=== PATIENT | male | born 1950 | race Two or more races ===

== ENCOUNTER 2025-07-25 01:39 | Emergency (ER) | payer MEDICARE, SELFPAY ==
[2025-07-25 01:41] VITALS: BMI 23.6
[2025-07-25 02:13] VITALS: BP 152/93; PULSE 81; RESP 19; TEMP 36.7; O2SAT 96
--- NOTE | 2025-07-25 02:28 | XR_ITS ---
Examination: AP chest single view Technique: AP portable upright chest single view Date and time: July 25, 2025 0236 hrs. Indications: Coughing beginning 2 days ago Findings: Normal heart size. Lungs are clear. The osseous structures are intact Impression: No active disease
--- NOTE | 2025-07-25 02:29 | PD.EDURI ---
Upper Respiratory Inf. RME/HPI General Chief Complaint: Flu Like Symptoms Stated Complaint: COUGH CONGESTION Time Seen by Provider: 07/25/25 02:28 Arrival date/time: 07/25/25 01:39 74M with history of asthma presents to ED with 2 days of cough and sore throat. Patient had Tele-doc appt, who prescribed Z-sarah, Tessalon Perles, and Zyrtec. Limitations: no limitations Related Data Previous Rx's ?Medication ?Instructions ?Recorded prednisone 20 mg tablet 20 mg PO BID 3 days #6 tabs 07/25/25 Allergies Allergy/AdvReac Type Severity Reaction Status Date / Time Penicillins Allergy Verified 07/25/25 01:45 Review of Systems Review of Systems Systems Reviewed: All systems reviewed, normal except as documented ENT Ears, Nose, Mouth, and Throat: Reports as per HPI and Reports sore throat Respiratory Respiratory: Reports as per HPI and Reports cough Past Medical History Social History SMOKING STATUS: Never smoker ED Exam General Limitations: Present no limitations General appearance: Present alert and in no apparent distress Head Head exam: Present atraumatic ENT ENT exam: Present normal exam, normal oropharynx and mucous membranes moist Neck Neck exam: Present normal inspection, full ROM and trachea midline Chest Chest inspection: Present normal inspection and symmetric chest wall rise Respiratory Respiratory exam: Present wheezes Neurological Exam Neurological exam: Present alert and oriented X3 Psychiatric Psychiatric exam: Present normal affect and normal mood Skin Skin exam: Present warm, dry, intact and normal color Course Quality Measures none Orders Category Date Time Status Bedside COVID-19 Antigen Test NOW Care 07/25/25 01:47 Active Bedside Influenza A&B Antigen Test NOW Care 07/25/25 01:47 Completed XR chest 1V portable Stat Exams 07/25/25 02:28 Taken Albuterol/Ipratr Rt Bessie [Duoneb Rt Bessie] Med 07/25/25 02:28 Discontinued 3 ml INH X1 ONE Dexamethasone Inj [Decadron Inj] Med 07/25/25 02:28 Discontinued 10 mg PO X1 ONE Vital Signs Vital signs: Vital Signs Temperature 98.1 F 07/25/25 02:13 Pulse Rate 81 07/25/25 02:13 Respiratory Rate 19 07/25/25 02:13 Blood Pressure 152/93 H 07/25/25 02:13 Pulse Oximetry (%) 96 07/25/25 02:13 Oxygen Delivery Method Room Air 07/25/25 02:13 O2 at 96% on RA and WNLs Upper Respiratory Infection MDM Narrative MDM Narrative:: 74M with history of asthma presents to ED with 2 days of cough and sore throat. Patient had Tele-doc appt, who prescribed Z-sarah, Tessalon Perles, and Zyrtec. Physical exam reveals normal oropharynx but wheezing in lungs. Patient is afebrile, calm, and alert. Swabs neg. Telerad CXR read unremarkable. Meds relieved wheezing. Sheet Metal Operator given. Patient data External records reviewed:: None Clinical information provided by:: patient Social determinants that could affect healthcare access:: none Patient has the following chronic illnesses:: asthma How is presenting disease/condition affected by chronic disease/condition?: exacerbated by Evaluation data The following diagnostics were reviewed and interpreted by me:: lab results and radiology exam(s) Lab and/or radiology exams considered but not ordered:: ordered Interpretation Summary: above Medications / Prescriptions Medications or Prescriptions considered but not ordered:: ordered Medication administrations:: Medication Administration History Discontinued Medications Albuterol/Ipratropium (Albuterol/Ipratropium (Duoneb) Rt Bessie 3 Ml Nebu) 3 ml INH X1 ONE Stop: 07/25/25 02:29 Last Admin: 07/25/25 02:41 Dose: 3 ml Documented By: EMR Dexamethasone Sodium Phosphate (Dexamethasone Sod Phos Inj 10 Mg/Ml Vial) 10 mg PO X1 ONE Stop: 07/25/25 02:29 Last Admin: 07/25/25 02:36 Dose: 10 mg Documented By: WO Comments: PO above Consultations Consultation(s) initiated? (list below): No Diagnosis Upper Respiratory Differential Diagnosis: upper respiratory infection, croup, otitis media, sinusitis, viral infection, bronchitis, influenza, pharyngitis and other (asthma exacerbation) Most likely diagnosis given after review of the tests above:: URI and asthma exacerbation Admission Indicated Admission indicated?: not indicated Admission Request Was there a request for admission?: No Disposition Plan Disposition Plan: Discharge Discharge Attestation Discharge Attestation: The patient and all family members were given an opportunity to ask questions and understood the discharge instructions. Discharge instructions specifically effects, indications for sooner follow up or return to the emergency department, and the expected course of current diagnosis. Patient condition: Stable Discharge Plan Plan Patient Disposition: HOME (Self Care) Discharge Disposition comment: Stable Prescriptions/Referrals Prescriptions/Med Rec: New prednisone 20 mg tablet 20 mg PO BID 3 Days Qty: 6 0RF Referrals: No Primary/Family,Physician [Primary Care Provider] - In 1 week Problem List Clinical Impression: Upper respiratory infection, Asthma exacerbation Patient/Caregiver Discharge Instructions Education Materials: ED URI, Viral W/ Wheezing (Adult) Additional Instructions: Please follow-up with PCP within 24-48 hours and return immediately if symptoms worsen. Can finish the Z-sarah. Do not need to take other meds if they are not helping you. Do take steroids. Print Language: Syriac Stand Alone Forms: Patient Portal Info Letter PA/MERCHANDISE ADJUSTMENT CLERK Supervising Physician PA/CEM Supervising Physician: Dr. Ren
[2025-07-25] MEDS: DEXAMETHASONE SOD PHOS INJ 10 MG/ML VIAL PO (02:36)
[2025-07-25 02:41] VITALS: PULSE 86; RESP 20; O2SAT 98
[2025-07-25] MEDS: ALBUTEROL/IPRATROPIUM (Duoneb) RT SOL 3 ML NEBU INH (02:41)
--- NOTE | 2025-07-25 03:14 | PRELIM_ITS ---
Radiograph of the chest (single view). July 25, 2025 0233 hours Clinical history: Cough Comparison: No prior study is available for comparison. Findings: The heart, mediastinum and pulmonary pascual are unremarkable. The lungs are clear. There is no pleural effusion. The bony thorax is unremarkable. Impression: No focal consolidation or pleural effusion. Report Electronically Signed By: Arthur Shelley 07/25/2025 3:13:47 AM [EST]
[2025-07-25 03:34] VITALS: BP 152/84; PULSE 82; RESP 20; TEMP 36.8; O2SAT 96
== END 2025-07-25 03:34 | disposition home or self-care (01) ==
PROVIDERS: Emergency Provider Emergency Medicine
DX: J45.901 Unspecified asthma with (acute) exacerbation (principal); J06.9 Acute upper respiratory infection, unspecified
CPT/HCPCS: 71045; 87400; 87811; 94640; 99283; A9270; J1100

== ENCOUNTER 2025-07-26 18:38 | Emergency (ER) | payer MEDICARE, SELFPAY ==
[2025-07-26 18:38] VITALS: BMI 23.6
--- NOTE | 2025-07-26 18:53 | XR_ITS ---
Examination: PA chest single view Technique: Upright PA chest single view July 26, 2025, 1858 hrs. Indications: Shortness of breath today Findings: Normal heart size. Lungs are clear. Osseous structures are intact Impression: No active disease
--- NOTE | 2025-07-26 19:01 | PD.EDURI ---
Upper Respiratory Inf. RME/HPI General Chief Complaint: Flu Like Symptoms Stated Complaint: COUGH SINCE LAST NIGHT, SEEN FEW DAYS AGO Time Seen by Provider: 07/26/25 18:45 Arrival date/time: 07/26/25 18:38 RME / HPI RME / HPI Narrative: Mr. Weeks is a 74-year-old male with past medical history of asthma who presented to [facility] [place] emergency department with a chief complaint of shortness of breath. Patient was reportedly seen yesterday in the ER for similar complaints was given breathing treatment, currently is on prednisone and has upper respiratory infection symptoms, patient is requesting a breathing treatment. He does endorse increased secretions shortness of breath however SpO2 stable on room air. Patient denies any chest pain headache palpitations dizziness and syncopal episode Related Data Previous Rx's ?Medication ?Instructions ?Recorded prednisone 20 mg tablet 20 mg PO BID 3 days #6 tabs 07/25/25 albuterol sulfate 2.5 mg/3 mL 2.5 mg (3 mL) inhalation Q6H PRN 07/26/25 (0.083 %) solution for nebulization shortness of breath or wheezing #75 mL albuterol sulfate 90 mcg/actuation 2 puff inhalation Q6H PRN 07/26/25 aerosol inhaler shortness of breath or wheezing #8.5 grams budesonide-formoterol HFA 160 1 puff inhalation BID Asthma #10.2 07/26/25 mcg-4.5 mcg/actuation aerosol grams inhaler Allergies Allergy/AdvReac Type Severity Reaction Status Date / Time Penicillins Allergy Severe Hives Verified 07/26/25 18:40 Review of Systems Review of Systems Systems Reviewed: All systems reviewed, normal except as documented Past Medical History Past Medical History RESPIRATORY: Positive Asthma Social History SMOKING STATUS: Never smoker ED Exam Narrative Physical exam: Physical Exam General: Awake and in no acute distress. Conversational and non-toxic appearing. HEENT: Normocephalic, atraumatic, mucous membranes moist. Heart: Regular rate and rhythm, no murmurs. Lungs: Clear to auscultation with no wheezing or crackles. Thick sputum. Abdomen: Soft, nondistended, nontender, positive bowel sounds. ?No guarding or rebound tenderness. Neurologic: Alert and oriented x3, no gross neurological deficit, and patient able to move all 4 extremities. Extremities: No edema. Skin: No rash or ecchymoses. Course Quality Measures none Orders Category Date Time Status Bedside COVID-19 Antigen Test NOW Care 07/26/25 18:49 Completed Bedside Influenza A&B Antigen Test NOW Care 07/26/25 18:51 Completed CXRP [XR chest 1V portable] Stat Exams 07/26/25 18:53 Completed CBC Stat Lab 07/26/25 19:13 Completed CMP [Comprehensive Metabolic Panel] Stat Lab 07/26/25 19:13 Completed Lactate (Lactic Acid) Stat Lab 07/26/25 19:13 Completed Magnesium Stat Lab 07/26/25 19:13 Completed Procalcitonin Stat Lab 07/26/25 19:13 Completed Albuterol/Ipratr Rt Bessie [Duoneb Rt Bessie] Med 07/26/25 18:49 Discontinued 3 ml INH X1 ONE Vital Signs Vital signs: Vital Signs Temperature 97.8 F 07/26/25 19:09 Pulse Rate 68 07/26/25 19:09 Respiratory Rate 18 07/26/25 19:09 Blood Pressure 160/86 H 07/26/25 19:09 Pulse Oximetry (%) 96 07/26/25 19:09 Oxygen Delivery Method Room Air 07/26/25 19:09 Upper Respiratory Infection MDM Narrative MDM Narrative:: # URI # Asthma Mr Weeks is a 74 year old male PMH of Asthma presented to ED with shortness of breath. Patient was seen in the ER yesterday for similar complaint, was given breathing treatment with DuoNeb and improved Patient is requesting another breathing treatment and medication refill Workup: Bedside COVID and flu negative Chest x-ray negative for acute pneumonia CBC: WBC 13.5, RBC 4.4, hemoglobin 14.1 hematocrit 40.7 platelet 231 Chemistry chloride 108, BUN/creatinine GFR within normal limits liver function within normal limits otherwise glucose 150 albumin/protein within normal limits lactate and Pro-Erick within normal limits Patient was given DuoNeb x 1 Patient was prescribed albuterol inhaler, albuterol solution and budesonide/formoterol, patient to continue prednisone Supportive management for upper respiratory viral infection Case discussed with Attending Physician Dr. Lorin Ventura MD Internal Medicine PGY-2 Disclaimer: This note was dictated by speech recognition. Minor errors in fuse cutter may be present due to voice recognition software. Patient data External records reviewed:: [facility] previous records Clinical information provided by:: patient Social determinants that could affect healthcare access:: none Patient has the following chronic illnesses:: Asthma How is presenting disease/condition affected by chronic disease/condition?: exacerbated by Evaluation data The following diagnostics were reviewed and interpreted by me:: lab results and radiology exam(s) Lab and/or radiology exams considered but not ordered:: None Interpretation Summary: Bedside COVID and flu negative Chest x-ray negative for acute pneumonia CBC: WBC 13.5, RBC 4.4, hemoglobin 14.1 hematocrit 40.7 platelet 231 Chemistry chloride 108, BUN/creatinine GFR within normal limits liver function within normal limits otherwise glucose 150 albumin/protein within normal limits lactate and Pro-Erick within normal limits Medications / Prescriptions Medications or Prescriptions considered but not ordered:: None Medication administrations:: Medication Administration History Discontinued Medications Albuterol/Ipratropium (Albuterol/Ipratropium (Duoneb) Rt Bessie 3 Ml Nebu) 3 ml INH X1 ONE Stop: 07/26/25 18:50 Last Admin: 07/26/25 19:23 Dose: 3 ml Documented By: PAR As Above Consultations Consultation(s) initiated? (list below): No Diagnosis Upper Respiratory Differential Diagnosis: upper respiratory infection Most likely diagnosis given after review of the tests above:: URI Admission Indicated Admission indicated?: not indicated Admission Request Was there a request for admission?: No Disposition Plan Disposition Plan: Discharge Discharge Attestation Discharge Attestation: The patient and all family members were given an opportunity to ask questions and understood the discharge instructions. Discharge instructions specifically effects, indications for sooner follow up or return to the emergency department, and the expected course of current diagnosis. Patient condition: Stable Discharge Plan Plan Patient Disposition: HOME (Self Care) Patient condition on transfer: Stable Prescriptions/Referrals Prescriptions/Med Rec: New albuterol sulfate 90 mcg/actuation HFA aerosol inhaler 2 puff inhalation Q6H PRN (Reason: shortness of breath or wheezing) Qty: 8.5 0RF albuterol sulfate 2.5 mg /3 mL (0.083 %) solution for nebulization 2.5 mg inhalation Q6H PRN (Reason: shortness of breath or wheezing) Qty: 75 1RF budesonide-formoterol 160-4.5 mcg/actuation HFA aerosol inhaler 1 puff inhalation BID Qty: 10.2 0RF Continued prednisone 20 mg tablet 20 mg PO BID 3 Days Qty: 6 0RF Problem List Clinical Impression: Upper respiratory infection, Asthma exacerbation Patient/Caregiver Discharge Instructions Discharge Activity: activity as tolerated Education Materials: Asthma Additional Instructions: - You were seen in the emergency department today for difficulty in breathing, we tested you for COVID and flu you were negative, we obtained a chest x-ray which was negative for any evidence of pneumonia, your lab work was negative for any signs of severe infection. - Your asthma symptoms are worse likely secondary to upper respiratory infection secondary to viral respiratory infection, maintain adequate hydration, use guaifenesin as prescribed to you and complete your prednisone course - We have prescribed inhalers and albuterol solution for nebulization as per your request, use as prescribed. - Return to the emergency department if your symptoms worsen - Follow-up with your primary care physician within 1 week and go over all your lab results and imaging findings. Print Language: Burundian Stand Alone Forms: Mary Award Info., Patient Portal Info Letter
[2025-07-26 19:09] VITALS: BP 160/86; PULSE 68; RESP 18; TEMP 36.6; O2SAT 96
[2025-07-26 19:21] LABS: Lactate (Lactic Acid) 1.4 mMol/L (0.4-2.0)
[2025-07-26] MEDS: ALBUTEROL/IPRATROPIUM (Duoneb) RT SOL 3 ML NEBU INH (19:23)
[2025-07-26 19:26] LABS: Basophils # (Auto) 0.0 Thou/mm3 (0.0-0.2); Basophils % (Auto) 0 % (0-2.5); Eosinophils # (Auto) 0.0 Thou/mm3 (0.0-0.5); Eosinophils % (Auto) 0 % (0-10); Hematocrit 40.7 % (41.0-53.0); Hemoglobin 14.1 g/dL (13.5-16.0); Immature Granulocytes Auto 0.07 Thou/mm3 (0.00-0.00); Lymphocytes # (Auto) 1.5 Thou/mm3 (1.0-4.8); Lymphocytes % (Auto) 11 % (10-50); Mean Corpuscular HGB Conc 34.6 g/dl (31.0-37.0); Mean Corpuscular Hemoglobin 31.8 pg (25.0-35.0); Mean Corpuscular Volume 92 fL (80-100); Monocytes # (Auto) 1.0 Thou/mm3 (0.0-0.8); Monocytes % (Auto) 7 % (0-12); Neutrophils # (Auto) 10.9 Thou/mm3 (1.8-7.7); Neutrophils % (Auto) 81 % (37-80); Nucleated Red Blood Cell # 0.00 Thou/mm3 (0.00-0.00); Nucleated Red Blood Cell % 0 /100 WBC (0); Platelet Count 231 Thou/mm3 (140-440); RDW Standard Deviation 44.5 fL (35.1-43.9); Red Blood Count 4.44 Miln/mm3 (4.50-5.90); White Blood Count 13.5 Thou/mm3 (3.8-10.6)
[2025-07-26 19:30] VITALS: PULSE 78; RESP 20; O2SAT 98
[2025-07-26 19:48] LABS: Alanine Aminotransferase 18 U/L (10-49); Albumin, Serum 4.6 gm/dL (3.4-4.8); Albumin/Globulin Ratio 1.6 (1.2-2.2); Alkaline Phosphatase 105 U/L (46-116); Anion Gap 10 (7-16); Aspartate Amino Transferase 26 U/L (0-34); BUN/Creatinine Ratio 19 Ratio (12-20); Bilirubin,Total 0.6 mg/dL (0.3-1.2); Blood Urea Nitrogen 19 mg/dL (9-23); Calcium 9.1 mg/dL (8.3-10.6); Calcium (Corrected) 9.1 mg/dL (8.5-10.1); Carbon Dioxide 21.7 mMol/L (20.0-31.0); Chloride 108 mMol/L (98-107); Creatinine (Component) 1.0 mg/dL (0.6-1.3); Estimated Creatinine Clearance 59.4 mL/min (>60); Globulin 2.8 gm/dL (2.3-3.5); Glucose 115 mg/dL (74-106); Osmolality,Calculated 282 (275-295); Potassium 4.2 mMol/L (3.4-5.1); Procalcitonin 0.06 ng/ml (0.0-0.49); Sodium 140 mMol/L (136-145); Total Protein 7.4 gm/dL (5.7-8.2); eGFR > 60 See Note
[2025-07-26 20:16] LABS: Magnesium 2.0 mg/dL (1.6-2.6)
== END 2025-07-26 20:28 | disposition home or self-care (01) ==
PROVIDERS: Emergency Provider Emergency Medicine; PCP Family Medicine
DX: J45.901 Unspecified asthma with (acute) exacerbation (principal); J06.9 Acute upper respiratory infection, unspecified; Z88.0 Allergy status to penicillin
CPT/HCPCS: 36415; 71045; 80053; 83605; 83735; 84145; 85025; 87400; 87811; 94640; 99283; A9270

== ENCOUNTER 2025-10-16 04:11 | Inpatient (IN) | payer MEDICARE, SELFPAY ==
[2025-10-16] VITALS (9 sets, daily range): BP systolic 107–151; BP diastolic 86–96; PULSE 73–110; RESP 16–95; TEMP 36.4–36.9; O2SAT 95–98; BMI 22.5; BMI 22.2; BMI 21.7
--- NOTE | 2025-10-16 | XR_ITS ---
MRI abdomen, without contrast. MRCP Date and time of exam: 10/16/2025 at 2:56 p.m. comparison is made with a CT of the abdomen on 10/16/2025 Technique: Multiple axial and coronal images of the abdomen have been obtained with the Siemens 1.5T MRI scanner. Images obtained included T1 weighted transverse images, T2-weighted transverse images, T2-weighted transverse images fat-suppressed, T2 weighted haste fat suppressed transverse images, T1 weighted images, in and out of phase images, T2-weighted coronal images, breath hold, T2 weighted haze coronal images as well as T2 weighted coronal thick slab images, MRCP. Findings: No abnormalities are seen in the liver or spleen. There are several tiny cysts in both kidneys and there is a very large simple fluid-filled cyst in the lower right kidney measuring 5.6 cm in diameter. As noted on a previous abdominal CT study earlier today, there continues to be mild distention with a few air-fluid levels throughout the small bowel. The pancreas and pancreatic duct appear normal. However at the distal end of the pancreatic duct where it joins the distal common bile duct there are 2 images, sequence 4001 image 15, sequence 5001 image 20, which I have marked with digital arrows, there does appear to be a very tiny low-density filling defect in the distal pancreatic duct. The intrahepatic bile ducts are only mildly prominent in size, the extrahepatic common bile duct is very significantly dilated measuring 1.8 cm in maximum diameter. No abnormality can be seen at the distal end of the common bile duct at the ampulla of Vater. The patient is status post cholecystectomy. IMPRESSION: 1. Again noted is very significant dilatation of the extrahepatic biliary duct. The terminal end of the common bile duct where it enters the duodenum appears normal. On 2 images there does appear to be a possible extremely tiny filling defect in the distal pancreatic duct in this same area. 2. After a cholecystectomy, the common bile duct very commonly will dilate, hence I cannot state that this is definitely pathologic. However because of the size of the common bile duct and because of a potential for a very tiny filling defect in the pancreatic duct, an ERCP would be recommended. 3. Multiple very tiny cysts in the kidneys, one very large cyst at the lower pole of the right kidney 4. Again noted is mild distention of several small bowel loops with air-fluid levels
--- NOTE | 2025-10-16 04:40 | XR_ITS ---
Examination: CT abdomen with intravenous contrast CT pelvis with intravenous contrast 2-D coronal reconstructions 2-D sagittal reconstructions Date and time of exam: October 16, 2025, 1148 hours INDICATIONS: Left lower abdominal pain with diarrhea beginning 2 days ago. CTDI: vol (mGy) 6.12 DLP: (mGycm) 368 Technique: Multiple axial sections of the abdomen and pelvis have been obtained. 64 slice high-resolution scanner used. 3 mm axial sections have been obtained, post intravenous injection 60 cc [id number] 2-D sagittal, coronal reconstructions obtained. Low dose protocols were performed. One or more of the following dose reduction techniques were used; automated exposure control, adjustment of the mA and/or KV according to patient size, use of iterative reconstruction technique. Findings: Lower wall of the esophagus is thickened Trace pericardial effusion Intrahepatic biliary tract dilatation Absent gallbladder Abnormal enlargement common hepatic duct 20 mm and common bile duct 10 mm, no definite stones No pancreatic mass Spleen is not enlarged No hydronephrosis Aortic calcification no aneurysmal dilatation Fluid distended small bowel loops No hernia defect Colonic diverticulosis, no diverticulitis Urinary bladder intact IMPRESSION: Abnormal extrahepatic biliary tract dilatation, consider MRCP follow-up to exclude malignant stricture distal common bile duct Significantly fluid distended small bowel loops, consider early small bowel obstruction, consider Gastrografin small bowel series follow-up
--- NOTE | 2025-10-16 04:41 | PD.EDRME ---
Rapid Medical Screening Exam RME Arrival date/time: 10/16/25 04:11 74M with history of GERD, appendectomy, and recurrent SBOs presents to ED with 2 days of lower ab pain and possibly bloody diarrhea. Minimal N/V. Chief Complaint: Abdominal Pain Vital signs: Vital Signs Temperature 98.5 F 10/16/25 04:12 Pulse Rate 110 H 10/16/25 04:12 Respiratory Rate 18 10/16/25 04:12 Blood Pressure 120/86 H 10/16/25 04:12 Pulse Oximetry (%) 97 10/16/25 04:12 Oxygen Delivery Method Room Air 10/16/25 04:12 Exam: LLQ tenderness Clinical Impression: Gastroenteritis vs colitis vs SBO vs diverticulitis vs C.diff vs GIB
[2025-10-16] MEDS: ONDANSETRON INJ 2 MG/ML INJ 2 ML 4 MG IVP (05:04)
[2025-10-16] MEDS: MORPHINE SULF INJ 4 MG/ML VIAL IV (05:05)
[2025-10-16] MEDS: SODIUM CHLORIDE 0.9% 1000 ML 1,000 ML 999 ML IV (05:05)
[2025-10-16 05:27] LABS: Basophils # (Auto) 0.1 Thou/mm3 (0.0-0.2); Basophils % (Auto) 1 % (0-2.5); Eosinophils # (Auto) 0.2 Thou/mm3 (0.0-0.5); Eosinophils % (Auto) 2 % (0-10); Hematocrit 48.7 % (41.0-53.0); Hemoglobin 17.1 g/dL (13.5-16.0); Immature Granulocytes Auto 0.03 Thou/mm3 (0.00-0.00); Lymphocytes # (Auto) 2.4 Thou/mm3 (1.0-4.8); Lymphocytes % (Auto) 23 % (10-50); Mean Corpuscular HGB Conc 35.1 g/dl (31.0-37.0); Mean Corpuscular Hemoglobin 31.7 pg (25.0-35.0); Mean Corpuscular Volume 90 fL (80-100); Monocytes # (Auto) 0.8 Thou/mm3 (0.0-0.8); Monocytes % (Auto) 8 % (0-12); Neutrophils # (Auto) 6.8 Thou/mm3 (1.8-7.7); Neutrophils % (Auto) 66 % (37-80); Nucleated Red Blood Cell # 0.00 Thou/mm3 (0.00-0.00); Nucleated Red Blood Cell % 0 /100 WBC (0); Platelet Count 225 Thou/mm3 (140-440); RDW Standard Deviation 42.5 fL (35.1-43.9); Red Blood Count 5.39 Miln/mm3 (4.50-5.90); White Blood Count 10.2 Thou/mm3 (3.8-10.6)
[2025-10-16 05:28] LABS: Lactate (Lactic Acid) 1.5 mMol/L (0.4-2.0)
[2025-10-16 06:10] LABS: Alanine Aminotransferase 21 U/L (10-49); Albumin, Serum 5.0 gm/dL (3.4-4.8); Albumin/Globulin Ratio 1.6 (1.2-2.2); Alkaline Phosphatase 103 U/L (46-116); Anion Gap 14 (7-16); Aspartate Amino Transferase 24 U/L (0-34); BUN/Creatinine Ratio 14 Ratio (12-20); Bilirubin,Total 2.5 mg/dL (0.3-1.2); Blood Urea Nitrogen 18 mg/dL (9-23); Calcium 9.8 mg/dL (8.3-10.6); Calcium (Corrected) 9.8 mg/dL (8.5-10.1); Carbon Dioxide 20.7 mMol/L (20.0-31.0); Chloride 103 mMol/L (98-107); Creatinine (Component) 1.3 mg/dL (0.6-1.3); Estimated Creatinine Clearance 48.1 mL/min (>60); Globulin 3.1 gm/dL (2.3-3.5); Glucose 113 mg/dL (74-106); Lipase 40 U/L (12-53); Osmolality,Calculated 278 (275-295); Potassium 4.2 mMol/L (3.4-5.1); Procalcitonin 0.08 ng/ml (0.0-0.49); Sodium 138 mMol/L (136-145); Total Protein 8.1 gm/dL (5.7-8.2); eGFR 58 See Note
--- NOTE | 2025-10-16 06:17 | PD.EDADULT ---
ED General RME/HPI General Chief complaint: Abdominal Pain Stated complaint: ABDOMINAL PAIN AND DIARRHEA Time Seen by Provider: 10/16/25 06:00 Arrival date/time: 10/16/25 04:11 RME / HPI RME / HPI narrative: 10/16/25 04:11 74M with history of GERD, appendectomy, and recurrent SBOs presents to ED with 2 days of lower ab pain and possibly bloody diarrhea. Minimal N/V. Exam: LLQ tenderness Impression: Gastroenteritis vs colitis vs SBO vs diverticulitis vs C.diff vs GIB Related Data Previous Rx's ?Medication ?Instructions ?Recorded albuterol sulfate 2.5 mg/3 mL 2.5 mg (3 mL) inhalation Q6H PRN 07/26/25 (0.083 %) solution for nebulization shortness of breath or wheezing #75 mL albuterol sulfate 90 mcg/actuation 2 puff inhalation Q6H PRN 07/26/25 aerosol inhaler shortness of breath or wheezing #8.5 grams budesonide-formoterol HFA 160 1 puff inhalation BID Asthma #10.2 07/26/25 mcg-4.5 mcg/actuation aerosol grams inhaler Allergies Allergy/AdvReac Type Severity Reaction Status Date / Time Penicillins Allergy Severe Hives Verified 07/26/25 18:40 ED Exam Narrative Physical exam: Physical Exam: GENERAL: Awake, answers questions appropriately, appears stated age HEENT: NC/AT. Moist mucosa. PERRLA/EOMI. CARDIO: Heart RRR, no obvious murmurs, no JVD. PULM: No coughing or visible SOB. Lungs CTA B/L. GI: Abdomen soft, NT/ND, hypoactive bowel sounds noted. No rigidity or guarding SKIN/MSK/EXT: No wounds/discoloration/rashes/edema/amputations. +Pedal pulses present B/L. NEURO: Oriented x3, Moves extremities x4, no focal neurologic deficits noted. Course Quality Measures none Orders Category Date Time Status Admit to Inpatient Status Routine Admission 10/16/25 17:37 Active Patient Condition Routine Admission 10/16/25 17:36 Ordered COVID-19 Screening Questionnaire NOW Care 10/16/25 17:[address] Screening NOW Care 10/16/25 04:40 Active Continuous Pulse Oximetry NOW Care 10/16/25 17:36 Active Decision to Admit X1 Care 10/16/25 17:45 Active Insert IV NOW Care 10/16/25 04:41 Active Insert NG / OG tube NOW Care 10/16/25 17:14 Active MRI Screening NOW Care 10/16/25 13:14 Active Miscellaneous Nursing Order NOW Care 10/16/25 17:36 Active NPO NOW Care 10/16/25 17:37 Active Notify provider NEEDED Care 10/16/25 17:36 Active Consult to General Surgery Stat Cons 10/16/25 17:19 Ordered Referral - Laser Operator Stat Cons 10/16/25 16:24 Active Diet NPO (NOW) Diet 10/16/25 17:[address] abdomen pelvis w con Stat Exams 10/16/25 04:40 Completed MR MRCP Stat Exams 10/16/25 Completed US liver Stat Exams 10/16/25 06:28 Completed XR small bowel single contrast Stat Exams 10/16/25 17:14 Ordered Bilirubin,Direct Stat Lab 10/16/25 17:06 Ordered CBC AM DRAW Lab 10/17/25 05:00 Ordered CBC AM DRAW Lab 10/18/25 05:00 Ordered CBC AM DRAW Lab 10/19/25 05:00 Ordered CBC AM DRAW Lab 10/20/25 05:00 Ordered CBC AM DRAW Lab 10/21/25 05:00 Ordered CBC AM DRAW Lab 10/22/25 05:00 Ordered CBC AM DRAW Lab 10/23/25 05:00 Ordered CBC Stat Lab 10/16/25 05:07 Completed CMP [Comprehensive Metabolic Panel] Stat Lab 10/16/25 05:07 Completed Comprehensive Metabolic Panel AM DRAW Lab 10/17/25 05:00 Ordered Comprehensive Metabolic Panel AM DRAW Lab 10/18/25 05:00 Ordered Comprehensive Metabolic Panel AM DRAW Lab 10/19/25 05:00 Ordered Comprehensive Metabolic Panel AM DRAW Lab 10/20/25 05:00 Ordered Comprehensive Metabolic Panel AM DRAW Lab 10/21/25 05:00 Ordered Comprehensive Metabolic Panel AM DRAW Lab 10/22/25 05:00 Ordered Comprehensive Metabolic Panel AM DRAW Lab 10/23/25 05:00 Ordered Lactate (Lactic Acid) Stat Lab 10/16/25 05:07 Completed Lipase Stat Lab 10/16/25 05:07 Completed Lipid Panel AM DRAW Lab 10/17/25 05:00 Ordered Magnesium AM DRAW Lab 10/17/25 05:00 Ordered Magnesium AM DRAW Lab 10/18/25 05:00 Ordered Magnesium AM DRAW Lab 10/19/25 05:00 Ordered Magnesium AM DRAW Lab 10/20/25 05:00 Ordered Magnesium AM DRAW Lab 10/21/25 05:00 Ordered Magnesium AM DRAW Lab 10/22/25 05:00 Ordered Magnesium AM DRAW Lab 10/23/25 05:00 Ordered Phosphorous AM DRAW Lab 10/17/25 05:00 Ordered Procalcitonin Stat Lab 10/16/25 05:07 Completed Thyroid Stimulating Hormone AM DRAW Lab 10/17/25 05:00 Ordered Urinalysis, C/S if Indicated Stat Lab 10/16/25 07:01 Completed Acetaminophen Tab [Tylenol Tab] Med 10/16/25 17:36 Ordered 650 mg PO Q6H PRN Albuterol/Ipratr Rt Bessie [Duoneb Rt Bessie] Med 10/16/25 17:46 Ordered 3 ml INH Q2HR PRN Heparin Inj Med 10/16/25 22:00 Ordered 5,000 unit SC Q8HR Metoclopramide Inj [Reglan Inj] Med 10/16/25 16:31 Discontinued 10 mg IVP X1 ONE Morphine* Inj Med 10/16/25 04:40 Discontinued 4 mg IV X1 ONE Ondansetron Inj [Zofran Inj] Med 10/16/25 17:36 Ordered 4 mg IVP Q6H PRN Ondansetron Inj [Zofran Inj] Med 10/16/25 04:40 Discontinued 4 mg IVP X1 ONE Pantoprazole Inj [Protonix Inj] Med 10/16/25 17:45 Ordered 40 mg IVP QDAY Ringers Lactated 1000 ml [Lactated Ringers] 1,000 ml Med 10/16/25 17:45 Ordered IV 75 mls/hr Sodium Chloride 0.9% 1000 ml [Ns] 1,000 ml Med 10/16/25 04:40 Discontinued IV 999 mls/hr levETIRAcetam INJ [Keppra Inj] Med 10/16/25 09:10 Discontinued 1,500 mg IVP X1 ONE levETIRAcetam [Keppra] Med 10/16/25 21:00 Discontinued 1,000 mg PO BID Code Status Routine Oth 10/16/25 17:36 Ordered EEG Awake and Drowsy Routine RT 10/16/25 09:10 Stop Req EKG (RT) Routine RT 10/16/25 17:39 Ordered Oxygen Delivery PRN RT 10/16/25 17:36 Active Vital Signs Vital signs: Vital Signs Temperature 98.5 F 10/16/25 04:12 Pulse Rate 110 H 10/16/25 04:12 Respiratory Rate 18 10/16/25 04:12 Blood Pressure 120/86 H 10/16/25 04:12 Pulse Oximetry (%) 97 10/16/25 04:12 Oxygen Delivery Method Room Air 10/16/25 04:12 Discharge Plan Plan Patient Disposition: Admit Acute Care w/in Hospital Patient condition on transfer: Stable Prescriptions/Referrals Prescriptions/Med Rec: No Action albuterol sulfate 90 mcg/actuation HFA aerosol inhaler 2 puff inhalation Q6H PRN (Reason: shortness of breath or wheezing) Qty: 8.5 0RF albuterol sulfate 2.5 mg /3 mL (0.083 %) solution for nebulization 2.5 mg inhalation Q6H PRN (Reason: shortness of breath or wheezing) Qty: 75 1RF budesonide-formoterol 160-4.5 mcg/actuation HFA aerosol inhaler 1 puff inhalation BID Qty: 10.2 0RF Referrals: Bobbi Calhoun FNP [Primary Care Provider] - In 1 week Problem List Clinical Impression: Small bowel obstruction Patient/Caregiver Discharge Instructions Print Language: [place] Stand Alone Forms: Mary Award Info., Patient Portal Info Letter MDM Narrative MDM hospital course (for use when minimal MDM required): HPI: 74-year-old male with past medical history of asthma, alcohol use disorder, multiple small bowel obstructions (treated at [facility]) in the past secondary to adhesions, hernia repair surgeries x 3, CKD stage IIIa presenting to the ER on 10/16 for a severe abdominal pain. Patient states that the pain just feels like a sharp sensation mostly in the epigastric region. Patient states that one day prior to the episode of abdominal pain he had a lot of flatus along with liquidy diarrhea. He denies any dietary changes and sick contacts, denies any fevers or chills. He has not had a colonoscopy in several years; was scheduled to have 1 in 2021 but due to insurance did not get it completed. He does state that his last colonoscopy years ago was normal but that they did found couple polyps which were excised. Patient also denies having any melena, hematochezia or hematemesis. Patient states he used to drink heavily but has since cut down in the last few years to occasional beer. On examination, please refer to the physical exam above; patient presented mildly hypertensive 120/86, tachycardic heart rate 110, respiratory rate 18, afebrile satting 97 on room air. Pertinent lab findings included CBC with erythrocytosis hemoglobin 17.1, MCV of 90 otherwise unremarkable; CMP is also largely unremarkable other than CKD stage IIIa, elevated total bilirubin of 2.5 but otherwise liver function enzymes including AST of 24, ALT 21 and alk phos 113 normal, Pro-Erick of 0.08. Incidental findings of multiple very tiny cysts in the kidneys, one very large cyst at the lower pole of the right kidney, Differentials at this time include: Small bowel obstruction, both complete versus incomplete, gallstone pancreatitis, cholelithiasis, cholecystitis, peptic ulcer disease, diverticulitis #Abdominal pain, #Small bowel obstruction #Bilirubinemia As noted patient has significant history of past multiple small bowel obstructions On clinical exam does not seem to be in acute SBO as his physical exam is largely unremarkable MRCP shows filling defect pancreatic duct Patient had a BM but continues to have mild/moderate (5/10) abdominal pain; no nausea/vomiting Spoke with GI physician at [facility], Dr. Rodrigues, who states that the patient does not need emergent ERCP at this time. His recommendation is to obtain a direct bilirubin. Regarding MRCP findings including tiny filling defect in the distal pancreatic duct; he states the patient's pain is on the lower right and left quadrants, he does not have any right upper quadrant tenderness on examination, rest of LFTs are within normal limits. CT abdomen pelvis also notes 20 mm common hepatic duct which could also be secondary to anatomy secondary to cholecystectomy. His recommendation is to admit the patient and treat the small bowel obstruction. Plan: Hospitalist team called for admission Patient seen and assessed with attending Dr. Linda Chand, DO PGY-2 Internal Medicine - GME Medication Administration(s) Medication Administration History Acetaminophen (Acetaminophen 325 Mg Tablet) 650 mg PO Q6H PRN PRN Reason: Fever >100.4 or pain Stop: 11/15/25 17:35 Albuterol/Ipratropium (Albuterol/Ipratropium (Duoneb) Rt Bessie 3 Ml Nebu) 3 ml INH Q2HR PRN PRN Reason: SHORTNESS OF BREATH OR WHEEZE Stop: 11/15/25 17:45 Heparin Sodium (Porcine) (Heparin Sod Inj 5000 Unit/Ml Vial) 5,000 unit SC Q8HR [facility] Stop: 10/30/25 21:59 Lactated Ringer's (Lactated Ringers) 1,000 mls @ 75 mls/hr IV .[id number] [facility] Stop: 11/15/25 17:44 Ondansetron HCl (Ondansetron Inj 2 Mg/Ml Inj 2 Ml) 4 mg IVP Q6H PRN; Protocol PRN Reason: NAUSEA OR VOMITING Stop: 11/15/25 17:35 Pantoprazole Sodium (Pantoprazole Inj 40 Mg Vial) 40 mg IVP QDAY [facility] Stop: 11/15/25 17:44 Discontinued Medications Sodium Chloride (Ns) 1,000 mls @ 999 mls/hr IV .Q1H1M ONE Stop: 10/16/25 05:40 Last Infusion: 10/16/25 06:14 Dose: Infused Documented By: Admin: 10/16/25 05:05 Dose: 999 mls/hr Documented By: AYDEN Levetiracetam (Levetiracetam Inj 100 Mg/Ml Vial 5ml) 1,500 mg IVP X1 ONE Stop: 10/16/25 09:11 Last Admin: 10/16/25 09:11 Dose: Not Given Documented By: RAH Non-Admin Reason: Cancelled by Provider Levetiracetam (Levetiracetam 250 Mg Tablet) 1,000 mg PO BID [facility] Stop: 11/15/25 20:59 Metoclopramide HCl (Metoclopramide Inj 5 Mg/Ml Vial 2 Ml) 10 mg IVP X1 ONE; Protocol Stop: 10/16/25 16:32 Last Admin: 10/16/25 16:47 Dose: 10 mg Documented By: TARYN Morphine Sulfate (Morphine Sulf Inj 4 Mg/Ml Vial) 4 mg IV X1 ONE Stop: 10/16/25 04:41 Last Admin: 10/16/25 05:05 Dose: 4 mg Documented By: AYDEN Ondansetron HCl (Ondansetron Inj 2 Mg/Ml Inj 2 Ml) 4 mg IVP X1 ONE; Protocol Stop: 10/16/25 04:41 Last Admin: 10/16/25 05:04 Dose: 4 mg Documented By: AYDEN
--- NOTE | 2025-10-16 06:28 | XR_ITS ---
Examination: Abdomen sonogram, Limited Date and time of exam: October 16, 2025, 0754 hours INDICATIONS: Elevated bilirubin on laboratory examination October 16, 2025 Technique: Real-time morrow scale transabdominal sonographic images of the upper abdomen obtained. Findings: Absent gallbladder Normal common bile duct 0.3 cm Pancreas obscured by bowel gas Liver 12.4 cm irregular contour fatty infiltration Normal hepatopetal portal venous flow Patent IVC IMPRESSION: Normal common bile duct Suspect primary hepatocellular disease
--- NOTE | 2025-10-16 07:15 | PC.NURSE ---
In to assess pt. Pt resting quietly at this time with c/o abd pain and diarrhea. Work up in progress. Call light within reach. Plan of care ongoing.
[2025-10-16 07:33] LABS: Collection Type, Urine Clean Catch
[2025-10-16 07:41] LABS: Bacteria,Urine Rare; Bilirubin,Urine Negative (Negative); Blood,Urine 1+ (Negative); Clarity,Urine Clear (Clear/Hazy); Color,Urine Yellow (Lt Yel-Yel); Culture Indicated,Urine Not Indicated; Glucose, Urine Negative (Negative); Hyaline Casts,Urine 1 /hpf (0-1); Ketones,Urine 2+ (Negative); Leukocyte Esterase,Urine Negative (Negative); Nitrite,Urine Negative (Negative); PH,Urine 6.0 (5.0-7.0); Protein,Urine Trace (Neg - Trace); RBC,Urine 11 /hpf (0-3); Specific Gravity,Urine 1.027 (1.001-1.035); Squamous Epithelial Cell,Urine < 1 /hpf (0-5); Urobilinogen,Urine Negative mg/dL (0.0-1.0); WBC,Urine 1 /hpf (0-5)
[2025-10-16] MEDS: METOCLOPRAMIDE INJ 5 MG/ML VIAL 2 ML 10 MG IVP (16:47)
--- NOTE | 2025-10-16 17:07 | PC.CC ---
Received transfer request from Dr. Chand for GI for ERCP. Clinical sent to [facility]. Peer to peer completed between Dr. Rodrigues and Dr. Chand, Dr. Rodrigues determined patient does not need ERCP services at this time. Dr. Rodrigues indication patient symptoms are related to SBO as indicated on CT. During the conversation Dr. Chand confirmed the cancellation of the transfer.
--- NOTE | 2025-10-16 17:14 | XR_ITS ---
EXAMINATION: Small bowel series AP abdomen 3 views Date and time: October 16, 2025, 1947 hours INDICATIONS: Abdominal distention, small bowel obstruction on CT abdomen pelvis study today TECHNIQUE AND FINDINGS: Patient received 120 cc Gastrografin AP abdomen immediate 30 minutes 1 hour obtained Contrast and distended small bowel loops IMPRESSION:: Small bowel obstruction pattern Recommend follow-up films 11:00 p.m., 1:00 a.m., 4:00 a.m., ADM
--- NOTE | 2025-10-16 17:41 | ESHP_ITS ---
Documentation for date of: 10/16/25 HPI History of Present Illness Chief complaint: SBO History of present illness: Dc Weeks 74M pmhx significant for asthma, GERD, and recurrent SBO 2/2 three hernia surgeries between ages ~[age] who presents with abdominal pain. Patient presents with 2 days of diffuse abdominal pain, endorses that pain is similar to previous SBO. Described as constant dull with some sharpness at central abdomen/epigastric region. Patient does endorse a bowel movement about 30 minutes before interview, described as small pellets, has not passed gas today or yesterday however. Denies recent travel, recent illness, weight loss, hematochezia, melena, RUQ pain, N/V or fever/chills. PMHx: as above Surgical Hx: 3 hernia repairs due to hernia perforation when he was 16 y/o, then another surgery (no perforation) at ~21 y/o, then another repair (no perf) ~31 y/o, appendectomy, remote cholecystectomy FHx: Denies cardiac or cancer family hx Social Hx: Denies tobacco or illicit/recreational drug use. Remote heavy alcohol use quit many years ago. Lives in [place], independent with all ADLs, walks without assistance Allergies: Penicillin rash Medications: Albuterol inhaler as needed In ED, BP 120/86 HR 110, RR 18, afebrile satting 97% RA, significant labs include T bilirubin 2.5, lactic acid 1.5, Pro-Erick negative, WBC negative. In ED, given Zofranx1, 1L NS bolus, morphine 4 mg x1, Reglan x1. Liver ultrasound showed normal CBD, MASLD. CTAP shows extra biliary tract dilation, early SBO. MRCP shows dilatation of extrahepatic biliary duct, multiple tiny cysts in kidney, 1 large right lower pole kidney cyst, mild distended several small bowel loops with air. In ED, initially patient was attempted to be transferred regarding dilation of extrahepatic biliary duct however on discussion with GI Dr. Rodrigues at [facility], patient does not need emergent ERCP at this time due to reassuring LFTs and defect may be secondary to anatomy secondary to cholecystectomy. Patient was admitted for SBO. Review of Systems Review of Systems Systems Reviewed: All systems reviewed, normal except as documented Exam Vital Signs Temp Pulse Resp BP Pulse Ox O2 Del Method 98.1 F 77 16 139/91 H 95 Room Air 10/16/25 15:30 10/16/25 15:30 10/16/25 15:30 10/16/25 15:30 10/16/25 15:30 10/16/25 15:30 Narrative Exam GENERAL: AOx3, no acute distress HEENT: mucous membranes moist, bilateral sclera anicteric CARDIOVASCULAR: regular rate and rhythm, S1/S2 present, no murmurs appreciated PULMONARY: clear to auscultation bilaterally, no rales/rhonchi/wheezes ABDOMINAL: soft, non-distended, no rebound/guarding, bowel sounds hypoactive, TTP central diffusely, no RUQ tenderness EXTREMITIES: no peripheral edema SKIN: warm and dry, intact, no rashes NEURO: CN II-XII grossly intact, no focal deficits, alert, following commands Results: Labs 10/17/25 04:30 10/17/25 04:30 Labs: Short CBC 10/16/25 Range/Units 05:07 WBC 10.2 (3.8-10.6) Thou/mm3 Hgb 17.1 H (13.5-16.0) g/dL Hct 48.7 (41.0-53.0) % Plt Count 225 (140-440) Thou/mm3 BMP 10/16/25 05:07 Sodium 138 Potassium 4.2 Chloride 103 Carbon Dioxide 20.7 BUN 18 Creatinine 1.3 Glucose 113 H Calcium 9.8 Liver Function 10/16/25 Range/Units 05:07 Total Bilirubin 2.5 H (0.3-1.2) mg/dL AST 24 (0-34) U/L ALT 21 (10-49) U/L Alkaline Phosphatase 103 (46-116) U/L Albumin 5.0 H (3.4-4.8) gm/dL Urine 10/16/25 Range/Units 07:01 Urine Color Yellow (Lt Yel-Yel) Urine Clarity Clear (Clear/Hazy) Urine pH 6.0 (5.0-7.0) Ur Specific [place] 1.027 (1.001-1.035) Urine Protein Trace (Neg - Trace) Urine Glucose (UA) Negative (Negative) Quality Measures Quality Measures VTE prophylaxis Advance care planning discussed with:: patient Medications Home Medications and Allergies Home Medications ?Medication ?Instructions ?Recorded ?Confirmed ?Type omeprazole 20 mg capsule,delayed 20 mg PO DAILY acid r eflux 10/16/25 10/17/25 History release Allergies Allergy/AdvReac Type Severity Reaction Status Date / Time Penicillins Allergy Severe Hives Verified 10/16/25 19:42 Visit Medications Acetaminophen (Acetaminophen 325 Mg Tablet) 650 mg PO Q6H PRN PRN Reason: Fever >100.4 or pain Stop: 11/15/25 17:35 Heparin Sodium (Porcine) (Heparin Sod Inj 5000 Unit/Ml Vial) 5,000 unit SC Q8HR [facility] Stop: 10/30/25 21:59 Lactated Ringer's (Lactated Ringers) 1,000 mls @ 75 mls/hr IV .[id number] [facility] Stop: 11/15/25 17:44 Ondansetron HCl (Ondansetron Inj 2 Mg/Ml Inj 2 Ml) 4 mg IVP Q6H PRN; Protocol PRN Reason: NAUSEA OR VOMITING Stop: 11/15/25 17:35 Pantoprazole Sodium (Pantoprazole Inj 40 Mg Vial) 40 mg IVP QDAY [facility] Stop: 11/15/25 17:44 Discontinued Medications Sodium Chloride (Ns) 1,000 mls @ 999 mls/hr IV .Q1H1M ONE Stop: 10/16/25 05:40 Last Infusion: 10/16/25 06:14 Dose: Infused Levetiracetam (Levetiracetam Inj 100 Mg/Ml Vial 5ml) 1,500 mg IVP X1 ONE Stop: 10/16/25 09:11 Last Admin: 10/16/25 09:11 Dose: Not Given Levetiracetam (Levetiracetam 250 Mg Tablet) 1,000 mg PO BID [facility] Stop: 11/15/25 20:59 Metoclopramide HCl (Metoclopramide Inj 5 Mg/Ml Vial 2 Ml) 10 mg IVP X1 ONE; Protocol Stop: 10/16/25 16:32 Last Admin: 10/16/25 16:47 Dose: 10 mg Morphine Sulfate (Morphine Sulf Inj 4 Mg/Ml Vial) 4 mg IV X1 ONE Stop: 10/16/25 04:41 Last Admin: 10/16/25 05:05 Dose: 4 mg Ondansetron HCl (Ondansetron Inj 2 Mg/Ml Inj 2 Ml) 4 mg IVP X1 ONE; Protocol Stop: 10/16/25 04:41 Last Admin: 10/16/25 05:04 Dose: 4 mg Assessment & Plan Plan Dc Weeks 74M pmhx significant for asthma, GERD, and recurrent SBO 2/2 three hernia surgeries between ages ~16-30 who presents with abdominal pain, admitted for SBO. #SBO #Hx of recurrent SBO Has hx of recurrent SBO about 4-5 times since his hernia surgeries. Has had 3 hernia surgeries between ages about [age] which is a cause of SBO's. Endorses abdominal pain similar to prior SBO. Did have bowel movement in ED however small, but given strong history and current abd pain and hypoactive bowel sounds, will treat as SBO. Liver ultrasound showed normal CBD, MASLD. CTAP shows extrahepatic biliary tract dilation, early SBO. MRCP shows dilatation of extrahepatic biliary duct, multiple tiny cysts in kidney, 1 large right lower pole kidney cyst, mild distended several small bowel loops with air. Ddx: recurrent SBO 2/2 hernia surgeries, hernia reoccurrence, constipation Plan: - NG tube and XR small bowel ordered - Maintenance IVF LR 75 cc/hr - Zofran and Reglan on board prn #Extrahepatic biliary tract dilatation #Dilated common hepatic duct 20 mm #Dilated common bile duct 10 mm In ED, initially due to Tbili elevation of 2.5, patient was attempted to be transferred regarding dilation of extrahepatic biliary duct for ERCP however on discussion with GI Dr. Rodrigues at [facility], patient does not need emergent ERCP at this time due to reassuring LFTs and defect may be secondary to anatomy secondary to cholecystectomy. Imaging as above. Plan: - CTM RUQ pain #Asthma Uses albuterol inhaler about 1-3 times a week, worse now that it is cold. Plan: - Duoneb q2h prn #GERD By hx. Plan: - IV pantoprazole 40 mg QD Hospital management: Lines: PIV Diet: NPO, NG tube Bowel: gastrograffin GI prophylaxis: IV pantoprazole 40 mg QD DVT prophylaxis: heparin 500 u q8h Disposition: med surg, gastrograffin series CODE STATUS: FULL CODE Plan of care discussed with attending Dr. Oliver. Nilsa Cartagena DO PGY-1 Internal Medicine Attending Provider Attestation/Addendum I reviewed labs, imaging, EKG, home medications and prior available records. Face to face evaluation was performed by me. I have personally examined the patient and discussed assessment and plan with the IM team. I reviewed the resident note and agree with the plan with exceptions as below. Small bowel obstruction Elevated T. bili Osmany GERD N.p.o. Small bowel series NG tube IV fluids Management of nausea/vomiting as needed Management of pain as needed Trend LFTs Started IV Protonix
[2025-10-16] MEDS: RINGERS LACTATED 1000 ML 1,000 ML 75 ML IV (18:14)
[2025-10-16 18:29] LABS: Bilirubin,Direct 0.7 mg/dL (0.0-0.3)
--- NOTE | 2025-10-16 18:41 | PC.NURSE ---
Two RNs attempted NG tube insertion. Pt not tolerating. Continues to grab RN arm telling us to stop that it is too painful.
--- NOTE | 2025-10-16 19:02 | PC.NURSE ---
Called and spoke with MD Zaragoza to inform of pt's refusal of NG tube. Pt asking if contrast for XR can be swallowed. Per MD, as long as pt passes bedside swallow screen then ok for pt to drink contrast vs through NG tube.
--- NOTE | 2025-10-16 19:11 | PC.NURSE ---
Patient report received from Nae HARDEN, patient is awake and alert, lying in bed at its lowest position with wheels locked and call light at reach. Patient will be admitted to the hospital, awaiting on covid test and MRI. Per day shift Nurse, Dr. Zaragoza wants swallowing test to be completed by Nurse, if patietn passess swallow test he can drink contrast media for MRI Studies.
[2025-10-16] MEDS: HEPARIN SOD INJ 5000 UNIT/ML VIAL SC (22:24)
--- NOTE | 2025-10-16 23:00 | XR_ITS ---
Examination: Abdomen AP single view Technique: AP portable supine abdomen, single view Exam date and time: October 16, 2025, 10:57 p.m. INDICATIONS: 3-hour delayed film for small bowel series today, abdominal pain and distention FINDINGS: Contrast in mildly distended small bowel loops Prior contrast in the colon IMPRESSION: Recommend follow-up films 1:00 a.m., 4:00 a.m., 8:00 a.m.
[2025-10-17] VITALS (8 sets, daily range): BP systolic 120–151; BP diastolic 77–94; PULSE 62–125; RESP 16–96; TEMP 36.4–37.4; O2SAT 93–97
--- NOTE | 2025-10-17 01:00 | XR_ITS ---
Examination: Abdomen AP single view Technique: AP portable supine abdomen, single view Exam date and time: October 17, 2025, 0056 hours INDICATIONS: Abdominal pain and distention this week, 5-hour delayed film for small bowel series FINDINGS: Contrast in minimally distended small bowel loops Abundant contrast throughout the colon IMPRESSION: Negative for small bowel obstruction
--- NOTE | 2025-10-17 04:00 | XR_ITS ---
Examination: Abdomen AP single view Technique: AP portable supine abdomen, single view Exam date and time: October 17, 2025, 0401 hours INDICATIONS: 7-hour delayed film for small bowel series, abdominal distention this week. FINDINGS: Mildly air distended small bowel loops Contrast is present throughout the colon IMPRESSION: Negative for small bowel obstruction
[2025-10-17 05:10] LABS: Basophils # (Auto) 0.0 Thou/mm3 (0.0-0.2); Basophils % (Auto) 0 % (0-2.5); Eosinophils # (Auto) 0.1 Thou/mm3 (0.0-0.5); Eosinophils % (Auto) 1 % (0-10); Hematocrit 42.6 % (41.0-53.0); Hemoglobin 14.9 g/dL (13.5-16.0); Immature Granulocytes Auto 0.02 Thou/mm3 (0.00-0.00); Lymphocytes # (Auto) 1.6 Thou/mm3 (1.0-4.8); Lymphocytes % (Auto) 20 % (10-50); Mean Corpuscular HGB Conc 35.0 g/dl (31.0-37.0); Mean Corpuscular Hemoglobin 31.8 pg (25.0-35.0); Mean Corpuscular Volume 91 fL (80-100); Monocytes # (Auto) 0.8 Thou/mm3 (0.0-0.8); Monocytes % (Auto) 10 % (0-12); Neutrophils # (Auto) 5.4 Thou/mm3 (1.8-7.7); Neutrophils % (Auto) 69 % (37-80); Nucleated Red Blood Cell # 0.00 Thou/mm3 (0.00-0.00); Nucleated Red Blood Cell % 0 /100 WBC (0); Platelet Count 175 Thou/mm3 (140-440); RDW Standard Deviation 43.2 fL (35.1-43.9); Red Blood Count 4.68 Miln/mm3 (4.50-5.90); White Blood Count 7.9 Thou/mm3 (3.8-10.6)
[2025-10-17] MEDS: HEPARIN SOD INJ 5000 UNIT/ML VIAL SC ×3 (05:27→21:13)
[2025-10-17 05:54] LABS: Alanine Aminotransferase 31 U/L (10-49); Albumin, Serum 4.3 gm/dL (3.4-4.8); Albumin/Globulin Ratio 1.8 (1.2-2.2); Alkaline Phosphatase 94 U/L (46-116); Anion Gap 13 (7-16); Aspartate Amino Transferase 30 U/L (0-34); BUN/Creatinine Ratio 17 Ratio (12-20); Bilirubin,Total 1.8 mg/dL (0.3-1.2); Blood Urea Nitrogen 19 mg/dL (9-23); Calcium 9.3 mg/dL (8.3-10.6); Calcium (Corrected) 9.3 mg/dL (8.5-10.1); Carbon Dioxide 21.3 mMol/L (20.0-31.0); Chloride 106 mMol/L (98-107); Creatinine (Component) 1.1 mg/dL (0.6-1.3); Estimated Creatinine Clearance 54.9 mL/min (>60); Globulin 2.4 gm/dL (2.3-3.5); Glucose 91 mg/dL (74-106); Magnesium 1.9 mg/dL (1.6-2.6); Osmolality,Calculated 281 (275-295); Phosphorous 3.4 mg/dL (2.4-5.1); Potassium 4.2 mMol/L (3.4-5.1); Sodium 140 mMol/L (136-145); Thyroid Stimulating Hormone 1.51 uIU/mL (0.55-4.78); Total Protein 6.7 gm/dL (5.7-8.2); eGFR > 60 See Note
[2025-10-17 06:50] LABS: Triglycerides 82 mg/dL (30-150)
[2025-10-17 06:52] LABS: Cardiac Risk Estimate 4.3 RATIO (4.0-6.7); Cholesterol 159 mg/dL (132-200); HDL Cholesterol 37 mg/dL (40-60); LDL Cholesterol,Calculated 106 mg/dL (0-130)
[2025-10-17] MEDS: RINGERS LACTATED 1000 ML 1,000 ML 75 ML IV (07:24)
--- NOTE | 2025-10-17 09:19 | PC.SS ---
Follow up note: Advance diet. On clear diet. Pt is possible d/c if he tolerates diet.
--- NOTE | 2025-10-17 11:07 | PC.NURSE ---
report given to Debbie HARDEN, Debbie [facility] care.
--- NOTE | 2025-10-17 11:22 | ESCONSULT_ITS ---
HPI Consult details History of present illness: 74M with asthma, GERD, recurrent adhesive SBO who presented to ER with abdominal pain, diarrhea and mild nausea. Workup indicated SBO, pt underwent small bowel series which showed contrast in the colon and pt is now tolerating CLD, reports feeling better Pt reports he is overdue for colonoscopy but plans to obtain a referral in 2025 due to a change in insurance PMH: Asthma, GERD, recurrent SBO PSHx: Cholecystectomy, appendectomy, hernia repair x3 Meds: Albuterol and omeprazole Allergies: PCN Review of Systems Review of Systems ROS Unobtainable: All systems reviewed & no additional complaints except as documented Meds Home Medications and Allergies Home Medications ?Medication ?Instructions ?Recorded ?Confirmed ?Type omeprazole 20 mg capsule,delayed 20 mg PO DAILY acid r eflux 10/16/25 10/17/25 History release Allergies Allergy/AdvReac Type Severity Reaction Status Date / Time Penicillins Allergy Severe Hives Verified 10/16/25 19:42 Exam Vital Signs Temp Pulse Resp BP Pulse Ox O2 Del Method O2 Flow Rate 99.4 F 83 16 120/78 94 L Room Air 97 10/17/25 08:00 10/17/25 08:24 10/17/25 08:24 10/17/25 08:00 10/17/25 08:00 10/17/25 08:00 10/16/25 19:30 Constitutional Constitutional: no acute distress Routine Respiratory Exam Respiratory: Present no resp distress Routine Abdominal Exam Abdominal: Present soft; Absent tenderness or distended Results Results: Laboratory Laboratory results: results reviewed Results: Imaging Abdominal x-ray: report reviewed and image reviewed CT scan - abdomen: report reviewed Assessment & Plan Plan 74M with asthma, GERD, recurrent adhesive SBO who presented to ER with abdominal pain, diarrhea and mild nausea. Workup indicated SBO which has since resolved Advance diet as tolerated Please reconsult as needed
--- NOTE | 2025-10-17 15:37 | PD.HHPROG ---
Documentation for date of: 10/17/25 Subjective - Hospitalist Subjective Interval history: Small bowel series showed resolution of SBO Patient reported improvement in his abdominal pain and less distention. No nausea or vomiting. He had multiple bowel movements after the small bowel series He has multiple questions about his diet given his SBO. Consulted dietitian and answered his questions Review of Systems Review of Systems Narrative Review of Systems: 12 point of system reviewed. All negative except as mentioned in the Exam Vital Signs Temp Pulse Resp BP Pulse Ox O2 Del Method O2 Flow Rate 98.6 F 65 16 132/77 H 93 L Room Air 97 10/17/25 11:30 10/17/25 11:30 10/17/25 11:30 10/17/25 11:30 10/17/25 11:30 10/17/25 11:30 10/16/25 19:30 Objective - Hospitalist Labs Diagram: 10/17/25 04:30 10/17/25 04:30 Labs: Laboratory Results - last 24 hr 10/16/25 10/17/25 17:34 04:30 WBC 7.9 RBC 4.68 Hgb 14.9 D Hct 42.6 MCV 91 MCH 31.8 MCHC 35.0 RDW Std Deviation 43.2 Plt Count 175 D Neut % (Auto) 69 Lymph % (Auto) 20 [place] % (Auto) 10 Eos % (Auto) 1 Baso % (Auto) 0 Neut # (Auto) 5.4 Lymph # (Auto) 1.6 [place] # (Auto) 0.8 Eos # (Auto) 0.1 Baso # (Auto) 0.0 Immature Gran # (Auto) 0.02 H Absolute Nucleated RBC 0.00 Immature Gran % 0 Nucleated RBC % 0 Sodium 140 Potassium 4.2 Chloride 106 Carbon Dioxide 21.3 Anion Gap 13 BUN 19 Creatinine 1.1 Estim Creat Clear Calc 54.9 L eGFR > 60 BUN/Creatinine Ratio 17 Glucose 91 Calculated Osmolality 281 Calcium 9.3 Corrected Calcium 9.3 Phosphorus 3.4 Magnesium 1.9 Total Bilirubin 1.8 H D Direct Bilirubin 0.7 H AST 30 ALT 31 Alkaline Phosphatase 94 Total Protein 6.7 Albumin 4.3 D Globulin 2.4 Albumin/Globulin Ratio 1.8 Triglycerides 82 Cholesterol 159 LDL Cholesterol, Calc 106 HDL Cholesterol 37 L Cholesterol/HDL Ratio 4.3 TSH 1.51 Assessment & Plan Patient Synopsis Dc Weeks 74M pmhx significant for asthma, GERD, and recurrent SBO 2/2 three hernia surgeries between ages ~[age] who presents with abdominal pain, admitted for SBO. #SBO #Hx of recurrent SBO Has hx of recurrent SBO about 4-5 times since his hernia surgeries. Has had 3 hernia surgeries between ages about [age] which is a cause of SBO's. Endorses abdominal pain similar to prior SBO. Did have bowel movement in ED however small, but given strong history and current abd pain and hypoactive bowel sounds, will treat as SBO. Liver ultrasound showed normal CBD, MASLD. CTAP shows extrahepatic biliary tract dilation, early SBO. MRCP shows dilatation of extrahepatic biliary duct, multiple tiny cysts in kidney, 1 large right lower pole kidney cyst, mild distended several small bowel loops with air. Ddx: recurrent SBO 2/2 hernia surgeries, hernia reoccurrence, constipation Plan: - NG tube and XR small bowel ordered: Showed resolution of the SBO - Started clear liquid diet, advance as tolerated - Zofran and Reglan on board prn #Extrahepatic biliary tract dilatation #Dilated common hepatic duct 20 mm #Dilated common bile duct 10 mm In ED, initially due to Tbili elevation of 2.5, patient was attempted to be transferred regarding dilation of extrahepatic biliary duct for ERCP however on discussion with GI Dr. Rodrigues at [facility], patient does not need emergent ERCP at this time due to reassuring LFTs and defect may be secondary to anatomy secondary to cholecystectomy. Imaging as above. Plan: - CTM RUQ pain #Asthma Uses albuterol inhaler about 1-3 times a week, worse now that it is cold. Plan: - Duoneb q2h prn #GERD By hx. Plan: - IV pantoprazole 40 mg QD Hospital management: Lines: PIV Diet: NPO, NG tube Bowel: gastrograffin GI prophylaxis: IV pantoprazole 40 mg QD DVT prophylaxis: heparin 500 u q8h Disposition: med surg, gastrograffin series CODE STATUS: FULL CODE small bowel Time Spent with Patient Time: Total time spent is greater than 50% in coordination of care (as documented) at patient's floor/unit and/or counseling patient: Time with patient: 25 - 35 minutes Reason for Continued Stay Reason for continued stay: other Quality Measures Quality Measures VTE prophylaxis Advance care planning discussed with:: patient
[2025-10-17] MEDS: METOCLOPRAMIDE INJ 5 MG/ML VIAL 2 ML IVP (21:25)
[2025-10-18] VITALS: BP 134/77; PULSE 80; RESP 20; TEMP 37.1; O2SAT 97
[2025-10-18] MEDS: RINGERS LACTATED 1000 ML 1,000 ML 75 ML IV (00:42)
[2025-10-18 04:00] VITALS: BP 138/87; PULSE 67; RESP 18; TEMP 36.4; O2SAT 97
[2025-10-18] MEDS: HEPARIN SOD INJ 5000 UNIT/ML VIAL SC (05:08)
[2025-10-18 05:40] LABS: Basophils # (Auto) 0.0 Thou/mm3 (0.0-0.2); Basophils % (Auto) 1 % (0-2.5); Eosinophils # (Auto) 0.3 Thou/mm3 (0.0-0.5); Eosinophils % (Auto) 5 % (0-10); Hematocrit 38.9 % (41.0-53.0); Hemoglobin 13.4 g/dL (13.5-16.0); Immature Granulocytes Auto 0.01 Thou/mm3 (0.00-0.00); Lymphocytes # (Auto) 1.8 Thou/mm3 (1.0-4.8); Lymphocytes % (Auto) 33 % (10-50); Mean Corpuscular HGB Conc 34.4 g/dl (31.0-37.0); Mean Corpuscular Hemoglobin 31.5 pg (25.0-35.0); Mean Corpuscular Volume 91 fL (80-100); Monocytes # (Auto) 0.6 Thou/mm3 (0.0-0.8); Monocytes % (Auto) 11 % (0-12); Neutrophils # (Auto) 2.7 Thou/mm3 (1.8-7.7); Neutrophils % (Auto) 50 % (37-80); Nucleated Red Blood Cell # 0.00 Thou/mm3 (0.00-0.00); Nucleated Red Blood Cell % 0 /100 WBC (0); Platelet Count 172 Thou/mm3 (140-440); RDW Standard Deviation 41.6 fL (35.1-43.9); Red Blood Count 4.26 Miln/mm3 (4.50-5.90); White Blood Count 5.4 Thou/mm3 (3.8-10.6)
[2025-10-18 06:06] LABS: Alanine Aminotransferase 24 U/L (10-49); Albumin, Serum 3.8 gm/dL (3.4-4.8); Albumin/Globulin Ratio 1.7 (1.2-2.2); Alkaline Phosphatase 80 U/L (46-116); Anion Gap 10 (7-16); Aspartate Amino Transferase 28 U/L (0-34); BUN/Creatinine Ratio 15 Ratio (12-20); Bilirubin,Total 1.6 mg/dL (0.3-1.2); Blood Urea Nitrogen 15 mg/dL (9-23); Calcium 8.6 mg/dL (8.3-10.6); Calcium (Corrected) 8.8 mg/dL (8.5-10.1); Carbon Dioxide 23.9 mMol/L (20.0-31.0); Chloride 105 mMol/L (98-107); Creatinine (Component) 1.0 mg/dL (0.6-1.3); Estimated Creatinine Clearance 60.4 mL/min (>60); Globulin 2.3 gm/dL (2.3-3.5); Glucose 83 mg/dL (74-106); Magnesium 1.9 mg/dL (1.6-2.6); Osmolality,Calculated 277 (275-295); Potassium 3.8 mMol/L (3.4-5.1); Sodium 139 mMol/L (136-145); Total Protein 6.1 gm/dL (5.7-8.2); eGFR > 60 See Note
[2025-10-18 07:57] VITALS: PULSE 70; RESP 18; RESP 96
[2025-10-18 08:00] VITALS: BP 119/72; PULSE 65; RESP 19; TEMP 36.3; O2SAT 97
[2025-10-18 12:00] VITALS: BP 149/85; PULSE 97; RESP 19; TEMP 36.7; O2SAT 96
--- NOTE | 2025-10-18 12:26 | PD.RESDS ---
Planned Discharge Date 10/18/25 DS: Providers Provider Date of admission: 10/16/25 17:41 Primary care physician: CEM Brody Admitting Provider: Kaushal Oliver MD Attending Provider on Admission: Kaushal Oliver MD Consults: 10/16/25 17:19 Consult to General Surgery Stat Comment: SBO Consulting Provider: Neida Cardoza Attending Provider on DC: Zeke Harrell MD Discharging Provider: Zeke Harrell MD DS: Diagnosis Problem List Completed Was Problem List Reviewed/Reconciled?: Yes Hospital Course Hospital Course Hospital course: Summary: Dc Weeks 74M pmhx significant for asthma, GERD, and recurrent SBO 2/2 three hernia surgeries between ages ~[age] who presents with abdominal pain, admitted for SBO. Patient presented with one day history of abdominal pain, similar to previous SBO episodes. Patient was treated with gastrograffin study with resolution of SBO. Of note, CTAP on admission showed dilatation of extrahepatic biliary ducts and had a admission total bilirubin of 2.5 in ED, raising concern for possible ERCP. In ED, patient was attempted to be transferred regarding dilation of extrahepatic biliary duct for ERCP however on discussion with GI Dr. Rodrigues at [facility], patient does not need emergent ERCP at this time due to reassuring LFTs and defect may be secondary to anatomy secondary to cholecystectomy. On discharge patient is hemodynamically stable, labs and vitals stable, and patient is ready to be discharged home. Imaging: Liver ultrasound showed normal CBD, MASLD. CTAP shows extrahepatic biliary tract dilation, early SBO. MRCP shows dilatation of extrahepatic biliary duct, multiple tiny cysts in kidney, 1 large right lower pole kidney cyst, mild distended several small bowel loops with air. Discharge Recommendations: - Please take all medications as prescribed - START dietary recommendations by instructional technology coordinator in hospital (low fiber, etc) - Continue all home medications - Please follow up with your PCP within one week of discharge - Please follow up with GI for colonoscopy as you are having frequent bowel obstructions - If your symptoms worsen, please seek immediate medical attention and return to your nearest emergency room. - If you do not have a PCP, you may follow up at the [facility] at [address] [place] [address] [address], [facility] [address], Hospital Diagnoses: #SBO #Hx of recurrent SBO #Extrahepatic biliary tract dilatation #Dilated common hepatic duct 20 mm #Dilated common bile duct 10 mm #Asthma #GERD Plan of care discussed with attending Dr. Harrell, and PGY-2 Dr. Dennis. Nilsa Cartagena, DO Internal Medicine, PGY-1 Time Spent with Patient Time attestation: Total time spent providing and/or coordinating discharge services: Time spent: Greater than 30 minutes Exam Vital Signs Temp Pulse Resp BP Pulse Ox O2 Del Method O2 Flow Rate 97.4 F 65 19 119/72 97 Room Air 97 10/18/25 08:00 10/18/25 08:00 10/18/25 08:00 10/18/25 08:00 10/18/25 08:00 10/18/25 04:00 10/16/25 19:30 Narrative Exam GENERAL: AOx3, no acute distress HEENT: mucous membranes moist, bilateral sclera anicteric CARDIOVASCULAR: regular rate and rhythm, S1/S2 present, no murmurs appreciated PULMONARY: clear to auscultation bilaterally, no rales/rhonchi/wheezes ABDOMINAL: soft, non-tender, non-distended, no rebound/guarding, bowel sounds present EXTREMITIES: no peripheral edema SKIN: warm and dry, intact, no rashes NEURO: CN II-XII grossly intact, no focal deficits, alert, following commands Discharge Plan Plan Patient Disposition: HOME (Self Care) Patient condition on transfer: Stable Care Plan Goals: Discharge Recommendations: - Please take all medications as prescribed - START dietary recommendations by instructional technology coordinator in hospital (low fiber, etc) - Continue all home medications - Please follow up with your PCP within one week of discharge - Please follow up with GI for colonoscopy as you are having frequent bowel obstructions - If your symptoms worsen, please seek immediate medical attention and return to your nearest emergency room. - If you do not have a PCP, you may follow up at the [facility] at [address] [place] [address] [address], [facility] [address], Prescriptions/Referrals Prescriptions/Med Rec: Continued albuterol sulfate 90 mcg/actuation HFA aerosol inhaler 2 puff inhalation Q6H PRN (Reason: shortness of breath or wheezing) Qty: 8.5 0RF omeprazole 20 mg capsule,delayed release(DR/EC) 20 mg PO DAILY Referrals: Bobbi Calhoun FNP [Primary Care Provider] Patient/Caregiver Discharge Instructions Education Materials: Small Bowel Obstruction, Large Bowel Obstruction, How the Colon Works, Obstruction Intestinal Print Language: Bulgarian Stand Alone Forms: Mary Award Info., Patient Portal Info Letter Discharge Order Discharge Orders: Discharge (Routine); Ordered 10/18/25 Ordered By: Nilsa Cartagena Quality Discharge Quality Measures VTE prophylaxis Attestestation Attigoration I discussed with and supervised the resident physician who took care of this patient. I agree with the assessment and discharge plan as above. Follow-up with primary care provider and will need referral for colonoscopy in the next several weeks. Return to the ER for recurrent symptoms.
== END 2025-10-18 13:19 | disposition home or self-care (01) | DRG 390 ==
LOC: SERX 17:48 → SERHOLD 18:48 → S3SX 10-17 05:30
PROVIDERS: Physician Assistant; Admitting Provider Student in an Organized Health Care Education/Training Program; PCP Nurse Practitioner Family; Visit Provider Internal Medicine
DX: K56.609 Unspecified intestinal obstruction, unspecified as to partial versus complete obstruction (principal); K21.9 Gastro-esophageal reflux disease without esophagitis; J45.909 Unspecified asthma, uncomplicated; K82.8 Other specified diseases of gallbladder; K83.8 Other specified diseases of biliary tract; N18.31 Chronic kidney disease, stage 3a; Z88.0 Allergy status to penicillin; K76.0 Fatty (change of) liver, not elsewhere classified
CPT/HCPCS: 36415; 74018; 74177; 74181; 74250; 76705; 80053; 80061; 81001; 82248; 83605; 83690; 83735; 84100; 84145; 84443; 85025; 87635; 87811; 96361; 96374; 96375; 99284; A4649; J1644; J2270; J2405; J2470; J2765; J7030; J7120; Q9963; Q9967